=== PATIENT | female | born 1985 | race Caucasian/White ===

== ENCOUNTER 2017-10-12 02:54 | Inpatient (IN) | payer OTHER ==
[2017-10-12] MEDS ORDERED: Sodium Citrate/Citric Acid* 15 ML UDC PO ONE (06:00)
[2017-10-12] MEDS ORDERED: Buffered Lidocaine 0.9% SYRIN* 5 ML/SYR SYRINGE INTRADERM ONE (06:00)
[2017-10-12] MEDS ORDERED: ceFOXitin(*) 2 GM in NS 0.9% 100 ML* 100 ML IVPB ONE (07:00)
[2017-10-12] MEDS ORDERED: Dibucaine 1% 28.35 GM TUBE PR PRN (07:47)
[2017-10-12] MEDS ORDERED: oxyCODONE/Acetamin 5/325 MG* TAB PO PRN ×2 (07:47→11:26)
[2017-10-12] MEDS ORDERED: Witch Hazel PAD* JAR TOPICAL PRN (07:47)
[2017-10-12] MEDS ORDERED: Morphine PF AMP (0.5MG/ML)* 5 MG/10 ML AMP ONE (07:50)
[2017-10-12] MEDS ORDERED: Phenylephrine IV* 40 MCG/ML 10 ML SYRINGE ONE (10:28)
[2017-10-12] MEDS ORDERED: OXYTOCIN* 10 UNITS/ML 1 ML VIAL ONE (10:28)
[2017-10-12] MEDS ORDERED: Ondansetron INJ* 2 MG/ML VIAL ONE (11:03)
[2017-10-12] MEDS ORDERED: Methylergonovine INJ* 0.2 MG/ML 1ML AMP ONE (11:22)
[2017-10-12] MEDS ORDERED: Ondansetron INJ* 2 MG/ML VIAL IV PRN ×2 (11:26→11:27)
[2017-10-12] MEDS ORDERED: fentaNYL* 50 MCG/ML 2 ML VIAL (100 MCG VIAL) IV PRN (11:26)
[2017-10-12] MEDS ORDERED: Naloxone* 0.4 MG/ML 1 ML VIAL IV PRN ×2 (11:26→11:27)
[2017-10-12] MEDS ORDERED: Ketorolac INJ* 30 MG/ML 1 ML VIAL IV PRN (11:26)
[2017-10-12] MEDS ORDERED: diPHENhydraMINE IV* 50 MG/ML 1 ml VIAL (BENADRYL) IV PRN (11:27)
[2017-10-12] MEDS ORDERED: Scopolamine PATCH Remove* 1 NOTE MISC PATCH OFF PRN (11:27)
[2017-10-12] MEDS ORDERED: DiMENhydriNATE IV* 50 MG/ML VIAL IV PUSH PRN (11:27)
[2017-10-12] MEDS ORDERED: Scopolamine 1.5 mg* PATCH TRANSDERM PRN (11:27)
[2017-10-12] MEDS ORDERED: Nalbuphine* 20 MG/ML 1 ML VIAL IV PRN (11:27)
[2017-10-12] MEDS ORDERED: Methylergonovine INJ* 0.2 MG/ML 1ML AMP IM ONE (11:30)
[2017-10-12] MEDS: Ketorolac INJ* 30 MG/ML 1 ML VIAL ONE ×2 (11:46→11:49)
[2017-10-12] MEDS: Oxytocin in LR* 20 UNITS/1,000 ML BAG IVPB ONE ×2 (11:48→14:06)
[2017-10-12] MEDS ORDERED: Carboprost Tromethamine* 250 MCG INJ IM ONE (13:15)
[2017-10-12] MEDS ORDERED: Carboprost Tromethamine* 250 MCG INJ ONE (13:16)
[2017-10-12] MEDS ORDERED: Oxytocin in LR* 20 UNITS/1,000 ML BAG IVPB ONE (14:03)
[2017-10-12] MEDS ORDERED: Tranexamic Acid 1,000 MG/10 ML SDV IV ONE ×2 (14:03→14:06)
[2017-10-12] MEDS: oxyCODONE/Acetamin 5/325 MG* TAB PO PRN (14:10)
[2017-10-12] MEDS ORDERED: NS 0.9% 100 ML* 100 ML ONE (14:12)
[2017-10-12 15:34] LABS: Hematocrit 26 % (35-47); Hemoglobin 8.4 g/dl (12.0-16.0); Mean Corpuscular HGB Conc 33 g/dl (31-36); Mean Corpuscular Hemoglobin 27 pg (27-31); Mean Corpuscular Volume 81 fL (80-97); Mean Platelet Volume 9 um3 (7.4-10.4); Platelet Count 183 10^3/ul (150-450); Red Blood Count 3.16 10^6/ul (4.0-5.4); Red Cell Distribution Width 16 % (10.5-15); White Blood Count 19.8 10^3/ul (3.5-10.8)
[2017-10-12] MEDS: Ibuprofen TAB* 600 MG PO SCH ×2 (17:43→19:41)
[2017-10-12] MEDS: Simethicone TAB* 80 MG TAB.CHEW PO SCH ×3 (17:43→21:06)
[2017-10-12] MEDS: Docusate CAP* 100 MG PO SCH ×3 (17:44→21:06)
[2017-10-12] MEDS: Methylergonovine TAB* 0.2 MG PO SCH (18:53)
[2017-10-13] MEDS: Ibuprofen TAB* 600 MG PO SCH ×4 (00:29→18:25)
[2017-10-13] MEDS: Methylergonovine TAB* 0.2 MG PO SCH ×4 (00:29→12:34)
[2017-10-13 08:24] LABS: ABS Basophils 0 10^3/ul (0-0.2); ABS Eosinophils 0.1 10^3/ul (0-0.6); ABS Lymphocytes 3.1 10^3/ul (1.0-4.8); ABS Monocytes 0.8 10^3/ul (0-0.8); ABS Neutrophils 9.3 10^3/ul (1.5-7.7); ABS Nucleated RBC 0 10^3/ul; Eosinophil % 0.7 % (0-6); Hematocrit 23 % (35-47); Hemoglobin 7.7 g/dl (12.0-16.0); Lymphocyte % 23.6 % (25-47); Mean Corpuscular HGB Conc 34 g/dl (31-36); Mean Corpuscular Hemoglobin 28 pg (27-31); Mean Corpuscular Volume 81 fL (80-97); Mean Platelet Volume 10 um3 (7.4-10.4); Nucleated Red Blood Cells % 0.1; Platelet Count 179 10^3/ul (150-450); Red Blood Count 2.81 10^6/ul (4.0-5.4); Red Cell Distribution Width 16 % (10.5-15); White Blood Count 13.3 10^3/ul (3.5-10.8)
[2017-10-13] MEDS: oxyCODONE/Acetamin 5/325 MG* TAB PO PRN ×3 (08:57→19:27)
[2017-10-13] MEDS: Docusate CAP* 100 MG PO SCH ×3 (08:57→21:18)
[2017-10-13] MEDS: Ferrous Gluconate TAB* 324 MG TAB PO SCH ×2 (08:57→21:18)
[2017-10-13] MEDS: Simethicone TAB* 80 MG TAB.CHEW PO SCH ×4 (08:57→21:18)
--- NOTE | 2017-10-13 11:35 | OP ---
DATE OF OPERATION: 10/12/17 - ROOM #116 DATE OF : 81 SURGEON: Marcelino Novoa MD. FORESTRY TECHNICAL OFFICER: Negrita Saunders CNM. ANESTHESIOLOGIST: Dr. Martin. ANESTHESIA: Spinal. PRE-OP DIAGNOSIS: At 39 weeks gestation with history of previous C section. POST-OP DIAGNOSES: At 39 weeks gestation with history of previous C section and atony. OPERATIVE PROCEDURE: Repeat low transverse section. ESTIMATED BLOOD LOSS: 900 cc. IV FLUIDS: 2000 cc Lactated Ringer's. URINE OUTPUT: 200 cc. MATERIALS TO LAB: Cord blood. INDICATIONS: This patient was a 32-year-old 5, para 1 who presented today at 39 wks for a scheduled repeat section. There was significant difficulty getting an adequate IV in place, so the surgery was delayed by a couple of hours. The patient was extensively counseled and consent was signed. FINDINGS: Normal appearing uterus, fallopian tubes and ovaries. Delivery was productive of a 9 pound 1 ounce female infant with Apgars of 9 and 9. Time of delivery was 1029. Of note, the entire uterus had significant atony after delivery. With IV Pitocin, IM Methergine, and uterine massage, the atony improved significantly. The anterior uterus seemed to be the softest part of the uterus even after the medications were administered. COMPLICATIONS: Moderate uterine atony. DESCRIPTION OF PROCEDURE: The risks, benefits, and alternatives were described to the patient, and informed consent was obtained. The patient was taken to the operating room with IV running, where spinal anesthesia was induced and found to be adequate. The patient was prepped and draped in normal sterile fashion in the dorsal supine position with a leftward tilt. A Pfannenstiel skin incision was made with a scalpel through the patient's previous incision. This was carried down to the underlying fascia using the scalpel. The fascia was scored in the midline, and the incision was extended using Dykes scissors. The fascia was dissected off the underlying rectus muscles using blunt and sharp dissection. The rectus muscles were in the midline using dissection with a Elizabeth clamp. The peritoneum was then entered bluntly. A bladder blade was placed. A bladder flap was created sharply using Metzenbaum scissors. A low transverse uterine incision was then made with the scalpel. This was carried down to the amniotic membranes. The membranes were then ruptured, productive of clear fluid. The uterine incision was extended using blunt traction. The head was elevated to the level of the incision, and, with fundal pressure, the head delivered without difficulty. The shoulders then were also both delivered and the body followed. The infant had excellent tone and cried immediately on delivery. The cord was doubly clamped and cut. The was then handed to the waiting transformer maker. Cord blood was collected. The placenta was delivered with manual extraction. The uterus was then exteriorized and cleared of all clots and debris. There was significant uterine atony and brisk bleeding initially, despite uterine massage and IV pitocin, so IM Methergine was ordered. The uterine incision was then reapproximated using 0 Polysorb in a running-locked fashion. A second layer of imbricating 0 Polysorb sutures was then also placed. A few additional stitches were placed for hemostasis. The posterior cul-de-sac was irrigated with saline. The uterus was then returned to the abdomen. The incision was reinspected and still noted to be hemostatic. The uterine tone was much improved. The peritoneum was closed with 3-0 Polysorb in a running fashion. The fascia was closed with 0 Polysorb in a running fashion. The subcutaneous tissues were copiously irrigated and made hemostatic using the bovie. The skin was then closed with 4-0 Monocryl in a subcuticular stitch. Mastisol and steristrips were applied. A sterile bandage was then placed over the incision. The patient tolerated the procedure well. Sponge, lap, and needle counts were correct x2. [id number]/[facility] #: [id number] [facility]
[2017-10-14] MEDS: Ibuprofen TAB* 600 MG PO SCH ×5 (01:08→18:07)
[2017-10-14] MEDS: oxyCODONE/Acetamin 5/325 MG* TAB PO PRN ×4 (01:22→18:08)
[2017-10-14] MEDS: Simethicone TAB* 80 MG TAB.CHEW PO SCH ×4 (07:34→21:45)
[2017-10-14] MEDS: Docusate CAP* 100 MG PO SCH ×3 (07:34→21:46)
[2017-10-14] MEDS: Ferrous Gluconate TAB* 324 MG TAB PO SCH ×2 (07:34→21:45)
[2017-10-15] MEDS: Ibuprofen TAB* 600 MG PO SCH ×2 (00:11→06:28)
[2017-10-15] MEDS: oxyCODONE/Acetamin 5/325 MG* TAB PO PRN ×2 (00:12→05:35)
[2017-10-15] MEDS ORDERED: Ibuprofen TAB* 600 MG PO SCH (06:30)
[2017-10-15 08:03] VITALS: BP 106/65
[2017-10-15] MEDS: Simethicone TAB* 80 MG TAB.CHEW PO SCH (08:39)
[2017-10-15] MEDS: Docusate CAP* 100 MG PO SCH (08:39)
[2017-10-15] MEDS: Ferrous Gluconate TAB* 324 MG TAB PO SCH (08:39)
== END 2017-10-15 11:09 | disposition home or self-care (01) | DRG 765 ==
LOC: MCHOB 02:54 → UNDOADMIN 02:54 → MCHOB 05:57
PROVIDERS: ADMIT Obstetrics & Gynecology; ATTEND Obstetrics & Gynecology
PROC: 10D00Z1 Extraction of Products of Conception, Low, Open Approach (ICD-10-PCS; 2017-10-12)
PROC: 4A1HX4Z Monitoring of Products of Conception, Cardiac Electrical Activity, External Approach (ICD-10-PCS; principal; 2017-10-12 07:45)
DX: O34.211 Maternal care for low transverse scar from previous cesarean delivery (principal); O72.1 Other immediate postpartum hemorrhage; O90.81 Anemia of the puerperium; Z37.0 Single live birth; Z88.1 Allergy status to other antibiotic agents; Z88.5 Allergy status to narcotic agent; Z3A.39 39 weeks gestation of pregnancy
CPT/HCPCS: 36415; 85025; 85027; A9270-GY; J0694; J1885; J2210; J2405; J2590